=== PATIENT | male | born 1985 ===

== ENCOUNTER 2018-01-15 17:53 | Emergency (ER) | payer OTHER ==
--- NOTE | 2018-01-15 19:01 | ED PDOC ---
HPI: Headache Time Seen by Provider: 01/15/18 18:35 Chief Complaint (Nursing): Fever Chief Complaint (Provider): Fever, Headache History Per: Patient History/Exam Limitations: no limitations Onset/Duration Of Symptoms: Days (x 6) Current Symptoms Are (Timing): Still Present Associated Symptoms: denies: Photophobia, Blurred Vision, Nausea, Vomiting, Extremity Weakness Additional Complaint(s): Migueltio is a 32 y/o male who presents to the ED complaining of tactile fever and global headache for the last 6 days. Patient has been taking Tylenol at home, last dose at 10am. 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 Denies cough, ear pain, nausea, vomiting, diarrhea, abdominal pain, chest pain, neck pain or stiffness, or urinary symptoms. Of note, patient had a sore throat this morning upon waking up. He returned from [place] on December 26 but felt fine at the time. PMD: Dr. Oates Past Medical History Reviewed: Historical Data, Nursing Documentation, Vital Signs Vital Signs: Last Vital Signs Temp 101.7 F H 01/15/18 17:57 Pulse 91 H 01/15/18 17:57 Resp 18 01/15/18 17:57 BP 117/73 01/15/18 17:57 Pulse Ox 99 01/15/18 17:57 - Medical History PMH: No Chronic Diseases - Surgical History Surgical History: No Surg Hx - Family History Family History: States: Unknown Family Hx - Social History Current smoker - smoking cessation education provided: No Alcohol: Social Drugs: Denies - Home Medications Home Medications: Ambulatory Orders Medication Instructions Recorded Acetaminophen [Acetaminophen 8 650 mg PO Q8 PRN #24 tablet.er 01/15/18 Hour] Ibuprofen [Motrin Tab] 800 mg PO Q8 PRN #24 tab 01/15/18 - Allergies Allergies/Adverse Reactions: Allergies Allergy/AdvReac Type Severity Reaction Status Date / Time No Known Allergies Allergy Verified 01/15/18 17:56 Review of Systems ROS Statement: Except As Marked, All Systems Reviewed And Found Negative Constitutional: Positive for: Fever ENT: Positive for: Throat Pain. Negative for: Ear Pain Cardiovascular: Negative for: Chest Pain Respiratory: Negative for: Cough Gastrointestinal: Negative for: Nausea, Vomiting, Abdominal Pain, Diarrhea Genitourinary Male: Negative for: Dysuria, Frequency, Incontinence, Hematuria Neurological: Positive for: Headache Physical Exam - Reviewed Nursing Documentation Reviewed: Yes Vital Signs Reviewed: Yes - Physical Exam Appears: Positive for: Well, Non-toxic, No Acute Distress Head Exam: Positive for: ATRAUMATIC, NORMOCEPHALIC Skin: Positive for: Normal Color, Warm, Dry Eye Exam: Positive for: EOMI, PERRL ENT: Positive for: Pharynx Is (clear, uvula midline), TM Is/Are (nonbulging, nonerythematous bilaterally), Pharyngeal Erythema (mild). Negative for: Sinus Pain/Drainage, Nasal Congestion, Tonsillar Exudate, Tonsillar Swelling Neck: Positive for: Painless ROM, Supple Cardiovascular/Chest: Positive for: Regular Rate, Rhythm Respiratory: Positive for: Normal Breath Sounds. Negative for: Decreased Breath Sounds, Accessory Muscle Use, Stridor, Wheezing, Respiratory Distress Gastrointestinal/Abdominal: Positive for: Bowel Sounds (active x4), Soft. Negative for: Tenderness, Mass, Distended, Guarding, Rebound Back: Positive for: Normal Inspection. Negative for: L CVA Tenderness, R CVA Tenderness, Vertebral Tenderness Extremity: Positive for: Normal ROM. 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 Negative for: Motor/Sensory Deficits, Aphasia, Facial Droop - Laboratory Results Result Diagrams: 01/15/18 19:00 01/15/18 19:00 - ECG O2 Sat by Pulse Oximetry: 99 (RA) Pulse Ox Interpretation: Normal Medical Decision Making Medical Decision Making: Time: 18:52 Initial Impression: Fever, headache, likely viral syndrome Initial Plan: --CMP --CBC --Blood Culture --Flu Swab --Motrin --Tylenol --Rapid Strep --Throat culture 2020 Labs reviewed, grossly unremarkable. Mild elevation in LFTs- advised close follow up with PMD for further evaluation. On re-evaluation, patient reports improvement of symptoms, denies any headache or neck stiffness at present. On exam, patient remains AAOx3, in no acute distress. Lungs clear to auscultation, cardiac RRR, abdomen soft, non-tender, repeat neuro exam shows no focal findings. VSS, stable for discharge. Repeat temp: 99.7, Repeat HR: 77. Lab/Diagnostic results d/w the patient in great detail. Diagnosis of headache, fever, likely viral syndrome d/w the patient. Educated on antipyretic administration. Based on history, exam and diagnostic results, plan will be for outpatient follow up. Patient instructed to follow-up with pmd / referral provided / the clinic in 1- 2 days without fail. Advised to take medication as prescribed. Return to the emergency room at any time for any new or worsening symptoms. Patient states he fully agrees with and understands discharge instructions. States that he agrees with the plan and disposition. Verbalized and repeated discharge instructions and plan. I have given the patient opportunity to ask any additional questions. Scribe Attestation: Documented by Landen Ash, acting as a scribe for Laura Timmons PA-C Provider Scribe Attestation: All medical record entries made by the Scribe were at my direction and personally dictated by me. I have reviewed the chart and agree that the record accurately reflects my personal performance of the history, physical exam, medical decision making, and the department course for this patient. I have also personally directed, reviewed, and agree with the discharge instructions and disposition. Disposition - Clinical Impression Clinical Impression: Fever in adult, Headache, Viral illness - Patient ED Disposition Is Patient to be Admitted: No Counseled Patient/Family Regarding: Studies Performed, Diagnosis, Need For Followup, Rx Given - Disposition Disposition: Routine/Home Disposition Time: 20:21 Condition: STABLE Additional Instructions: FOLLOW UP WITH PMD IN 1-2 DAYS WITHOUT FAIL. RETURN TO ED WITH ANY NEW OR WORSENING SYMPTOMS. Prescriptions: Acetaminophen [Acetaminophen 8 Hour] 650 mg PO Q8 PRN #24 tablet.er PRN Reason: Fever >100.4 F Ibuprofen [Motrin Tab] 800 mg PO Q8 PRN #24 tab PRN Reason: Headache Instructions: Headache, Adult (DC), Fever, Adult (DC), When to Worry About a Fever Forms: [employer] (Sammarinese) Print Language: SENEGALESE - POA Present On Arrival: None Results - Lab Results Lab Results: 01/15/18 01/15/18 01/15/18 19:10 19:00 19:00 WBC 8.8 RBC 4.92 Hgb 14.2 Hct 41.2 MCV 83.8 MCH 28.9 MCHC 34.5 RDW 12.6 Plt Count 178 MPV 9.2 Neut % (Auto) 58.9 Lymph % (Auto) 27.6 Stanley % (Auto) 12.6 H Eos % (Auto) 0.2 Baso % (Auto) 0.7 Neut # (Auto) 5.2 Lymph # (Auto) 2.4 Stanley # (Auto) 1.1 H Eos # (Auto) 0.0 Baso # (Auto) 0.1 Sodium 141 Potassium 4.2 Chloride 97 L Carbon Dioxide 27 Anion Gap 21 H BUN 11 Creatinine 0.9 Est GFR ( Amer) > 60 Est GFR (Non-Af Amer) > 60 Random Glucose 94 Calcium 9.4 Total Bilirubin 0.3 AST 72 H ALT 108 H Alkaline Phosphatase 82 Total Protein 8.8 H Albumin 4.4 Globulin 4.4 H Albumin/Globulin Ratio 1.0 Influenza Typ A,B (EIA) Grp A Beta Strep Ag Negative 01/15/18 19:00 WBC RBC Hgb Hct MCV MCH MCHC RDW Plt Count MPV Neut % (Auto) Lymph % (Auto) Stanley % (Auto) Eos % (Auto) Baso % (Auto) Neut # (Auto) Lymph # (Auto) Stanley # (Auto) Eos # (Auto) Baso # (Auto) Sodium Potassium Chloride Carbon Dioxide Anion Gap BUN Creatinine Est GFR ( Amer) Est GFR (Non-Af Amer) Random Glucose Calcium Total Bilirubin AST ALT Alkaline Phosphatase Total Protein Albumin Globulin Albumin/Globulin Ratio Influenza Typ A,B (EIA) Negative for flu a/b Grp A Beta Strep Ag
[2018-01-15 19:15] LABS: BASO # 0.1 K/uL (0.0-0.2); BASO % 0.7 % (0.0-2.0); EOS % 0.2 % (0.0-4.0); HEMOGLOBIN 14.2 g/dL (12.0-18.0); LYMPH # 2.4 K/uL (1.0-4.3); LYMPH % 27.6 % (20.0-40.0); MEAN CELL VOLUME 83.8 fl (80.0-94.0); MEAN CORPUSCULAR HEMOGLOBIN 28.9 pg (27.0-31.0); MEAN CORPUSCULAR HGB CONC 34.5 g/dL (33.0-37.0); MEAN PLATELET VOLUME 9.2 fl (7.2-11.7); MONO # 1.1 K/uL (0.0-0.8); MONO % 12.6 % (0.0-10.0); NEUT # 5.2 K/uL (1.8-7.0); NEUT % 58.9 % (50.0-75.0); NRBC % 0.1 % (0.0-0.0); RBC 4.92 Mil/uL (4.40-5.90); RED CELL DISTRIBUTION WIDTH 12.6 % (11.5-14.5); WHITE BLOOD COUNT 8.8 K/uL (4.8-10.8)
[2018-01-15 19:27] LABS: ALBUMIN 4.4 g/dL (3.5-5.0); ALT/SGPT 108 U/L (21-72); AST/SGOT 72 U/L (17-59); BLOOD UREA NITROGEN 11 mg/dl (9-20); CALCIUM 9.4 mg/dL (8.4-10.2); GFR AFRICAN-AMERICAN > 60; GFR NON-AFRICAN AMERICAN > 60
[2018-01-15 20:13] VITALS: TEMP 99.7
[2018-01-15 20:17] VITALS: BP 117/75; PULSE 77; RESP 16
[2018-01-15 20:22] VITALS: O2SAT 99
== END 2018-01-15 20:47 | disposition home or self-care (01) ==
LOC: H.ER 17:53
DX: R50.9 Fever, unspecified (principal); R51 Headache; B34.9 Viral infection, unspecified